=== PATIENT | male | born 1950 | race Two or more races ===

== ENCOUNTER 2018-11-30 09:16 | Inpatient (IN) | payer MEDICARE, MEDICAID ==
[~2018-11-30] VITALS: Ht 172.7 cm; Wt 75.8 kg
[2018-11-30] MEDS ORDERED: PHENYLEPHRINE 100MCG/ML 10ML VIAL (CATH LAB) IV ONE (09:31)
[2018-11-30] MEDS ORDERED: HEPARIN SODIUM 1,000 UNIT/1ML VIAL IV ONE (09:31)
[2018-11-30] MEDS ORDERED: NITROGLYCERIN 50MCG/ML 10ML VIAL (CATH LAB) IV ONE (09:31)
[2018-11-30] MEDS ORDERED: ATOR20TA MT (09:44)
[2018-11-30] MEDS ORDERED: NITR0.4T SL (09:44)
[2018-11-30] MEDS ORDERED: ASPI-1393 MT (09:44)
[2018-11-30] MEDS ORDERED: METO-396 MT (09:44)
[2018-11-30] MEDS ORDERED: LIDOCAINE HCL 1% 20ML VIAL (Pyxis) INJ ONE (10:12)
[2018-11-30] MEDS ORDERED: IODIXANOL 320MG/ML 100 ML BOTTLE IV ONE (10:12)
[2018-11-30] MEDS ORDERED: ASPIRIN/SOD BICARB/CITRIC ACID 324MG TAB EFF ONE (10:12)
[2018-11-30] MEDS ORDERED: FENTANYL CITRATE/PF 50MCG/ML 2ML VIAL ONE (10:37)
[2018-11-30] MEDS ORDERED: MIDAZOLAM HCL 2 MG/2 ML VIAL ONE (10:37)
[2018-11-30] MEDS ORDERED: IOHEXOL-300 100 ML BOTTLE ONE (11:10)
[2018-11-30] MEDS ORDERED: ATROPINE SULFATE 0.1MG/ML 10ML DISP.SYRIN ONE (12:04)
[2018-11-30] MEDS ORDERED: ACETAMINOPHEN 325MG TABLET PO PRN (12:15)
[2018-11-30] MEDS ORDERED: ATROPINE SULFATE 1MG/10ML SYR IV PRN (12:15)
[2018-11-30] MEDS ORDERED: ONDANSETRON HCL 4MG/2ML INJ IV PRN (12:15)
[2018-11-30] MEDS ORDERED: MORPHINE SULFATE 2 MG/ML CPJ (NOT FOR IM USE) IV PRN (12:15)
[2018-11-30] MEDS ORDERED: SODIUM CHLORIDE 0.45% 1,000 ML IV ONE (13:39)
[2018-11-30 15:11] VITALS: BP 115/75
[2018-11-30 16:00] VITALS: BP 110/83
[2018-11-30 18:00] VITALS: BP 102/63
[2018-11-30 20:00] VITALS: BP 118/69
[2018-11-30] MEDS ORDERED: ATORVASTATIN CALCIUM 20MG TABLET PO SCH (21:00)
[2018-11-30] MEDS: METOPROLOL TARTRATE 25MG TABLET PO SCH (21:00)
[2018-11-30 22:01] VITALS: BP 116/57
[2018-12-01] VITALS (7 sets, daily range): BP systolic 93–125; BP diastolic 58–74
[2018-12-01 06:21] LABS: BASOPHILS % 0.9 % (0.0-2.0); HEMATOCRIT. 44.4 % (42.0-52.0); HEMOGLOBIN. 15.3 g/dL (14.0-18.0); LYMPHOCYTES % 19.1 % (20.0-50.0); MEAN CORPUSCULAR HEMOGLOBIN 31.1 pg (28.0-32.0); MEAN CORPUSCULAR VOLUME 90.2 fL (80.0-94.0); MEAN PLATELET VOLUME 7.8 fl (7.4-10.4); MONOCYTES % 8.7 % (2.0-8.0); NEUTROPHILS % 69.3 % (40.0-76.0); PLATELET 238 x1000/uL (130-400); RED BLOOD CELL COUNT 4.93 mill/uL (4.7-6.1); RED CELL DISTRIBUTION WIDTH 13.9 % (11.6-14.6)
[2018-12-01 06:24] LABS: CHLORIDE 108 mEq/L (98-107)
[2018-12-01] MEDS ORDERED: ASPIRIN 81MG TABLET PO SCH (09:00)
[2018-12-01] MEDS: METOPROLOL TARTRATE 25MG TABLET PO SCH (09:12)
== END 2018-12-01 10:49 | disposition home or self-care (01) | DRG 287 ==
LOC: CCL 09:16 → 3WST 09:17
PROVIDERS: ADMIT Specialist; ATTEND Specialist
PROC: 4A023N7 Measurement of Cardiac Sampling and Pressure, Left Heart, Percutaneous Approach (ICD-10-PCS; principal; 2018-11-30)
PROC: B2111ZZ Fluoroscopy of Multiple Coronary Arteries using Low Osmolar Contrast (ICD-10-PCS; 2018-11-30)
PROC: B2181ZZ Fluoroscopy of Left Internal Mammary Bypass Graft using Low Osmolar Contrast (ICD-10-PCS; 2018-11-30)
PROC: 4A033BC Measurement of Arterial Pressure, Coronary, Percutaneous Approach (ICD-10-PCS; 2018-11-30)
DX: I25.119 Atherosclerotic heart disease of native coronary artery with unspecified angina pectoris (principal); Q25.0 Patent ductus arteriosus; R07.9 Chest pain, unspecified; E78.00 Pure hypercholesterolemia, unspecified; I25.82 Chronic total occlusion of coronary artery; I10 Essential (primary) hypertension; E78.5 Hyperlipidemia, unspecified; Z79.899 Other long term (current) drug therapy
CPT/HCPCS: 36415; 80048; 85347; 93005; 93458; C1725; C1769; C1887; C1893; J0461; J1644; J2250; J2370; J3010; J3490; Q9967

== ENCOUNTER 2023-12-15 08:03 | Day surgery (SDC) | payer MEDICARE, MEDICAID ==
[~2023-12-15] VITALS: Ht 157.5 cm; Wt 72.6 kg
[~2023-12-15 08:03] MED LIST: ASPI-1406 PO; ATOR-2 PO; EZET10TA81 PO; LEVO25TA7 PO; LISI2.5T47 PO; METF-414 PO; NITR0.4T SL; SOLI10TA PO; TAMS-11 PO
[2023-12-15] MEDS: SODIUM CHLORIDE 0.45% 500 ML IV NR (08:47)
[2023-12-15] MEDS ORDERED: LIDOCAINE HCL 1% 10 MG/ML 10ML VIAL ONE (10:12)
[2023-12-15] MEDS ORDERED: HEPARIN 1000 UNITS/ML 10ML ONE (10:12)
[2023-12-15] MEDS ORDERED: IODIXANOL 320MG/ML 100 ML BOTTLE IV ONE (10:12)
[2023-12-15] MEDS ORDERED: FENTANYL CITRATE/PF 50MCG/ML 2ML VIAL ONE (10:33)
[2023-12-15] MEDS ORDERED: MIDAZOLAM HCL 2 MG/2 ML VIAL ONE (10:33)
[2023-12-15] MEDS ORDERED: ACETAMINOPHEN 325MG TABLET PO PRN (11:45)
[2023-12-15] MEDS ORDERED: ONDANSETRON HCL 4MG/2ML INJ IV PRN (11:45)
[2023-12-15] MEDS ORDERED: MORPHINE SULFATE 2 MG/ML INJ (NOT FOR IM USE) IV PRN (11:45)
== END 2023-12-15 15:50 | disposition home or self-care (01) ==
LOC: CARD 08:03
PROVIDERS: ATTEND Specialist
DX: I25.10 Atherosclerotic heart disease of native coronary artery without angina pectoris (principal); I12.9 Hypertensive chronic kidney disease with stage 1 through stage 4 chronic kidney disease, or unspecified chronic kidney disease; N18.9 Chronic kidney disease, unspecified; E03.9 Hypothyroidism, unspecified; E78.5 Hyperlipidemia, unspecified; G47.30 Sleep apnea, unspecified; Z79.82 Long term (current) use of aspirin; Z79.84 Long term (current) use of oral hypoglycemic drugs; Z79.890 Hormone replacement therapy; Z79.899 Other long term (current) drug therapy; Z95.5 Presence of coronary angioplasty implant and graft
CPT/HCPCS: 93458; 82962; C1893; C1725; C1769 ×2; J3010; Q9967; J1644 ×2; J3490; J2250; 99152; 99153; G0500